=== PATIENT | male | born 1955 | race Asian ===

== ENCOUNTER 2017-09-29 14:59 | Emergency (ER) | payer SELFPAY ==
[~2017-09-29] VITALS: Ht 172.7 cm; Wt 52.2 kg
[2017-09-29 15:05] VITALS: Ht 172.7 cm; Wt 52.2 kg
[2017-09-29] MEDS ORDERED: ONDANSETRON (ODT) 4 MG TAB ODT STA (17:40)
[2017-09-29] MEDS ORDERED: HYDROmorphONE 1 MG/ML SYG IM STA (17:40)
[2017-09-29] MEDS ORDERED: METH750T93 PO (17:43)
[2017-09-29] MEDS ORDERED: IBUP800T25 PO (17:43)
[2017-09-29] MEDS ORDERED: HYDR-902 PO (17:43)
--- NOTE | 2017-09-29 17:47 | ERD ---
ER Documentation Chief Complaint Chief Complaint Left arm pain after carrying heavy backpack HPI This is 61-year-old male who is carrying a heavy backpack in his right hand. He said he tossed it into his left hand because he is getting tired of holding it with his right hand and when he caught it with his left hand and pulled his arm down and he felt sudden pain in his left posterior cervical neck and left trapezius left shoulder. He says he has pain is described as sharp worse with movement of his left shoulder neck and arm in general. There is no radiculopathy no numbness or burning there is no weakness no chest pain or shortness of breath ROS All systems reviewed and are negative except as per history of present illness. Medications Home Meds Active Scripts Hydrocodone/Acetaminophen ([place] 10-325 Tablet) 1 Each Tablet, 1 TAB PO Q6H Y for PAIN, #20 TAB Prov:ANGELIQUE SOLIS DO 09/29/17 Ibuprofen* (Motrin*) 800 Mg Tab, 800 MG PO Q6H Y for PAIN AND OR ELEVATED TEMP, #30 TAB Prov:ANGELIQUE SOLIS. DO 09/29/17 Methocarbamol* (Robaxin*) 750 Mg Tablet, 750 MG PO TID, #20 TAB Prov:ANGELIQUE SOLIS DO 09/29/17 PMhx/Soc Hx Alcohol Use: No Hx Substance Use: No Hx Tobacco Use: No FmHx Family History: No coronary disease Physical Exam Vitals Vital Signs Date Time Temp Pulse Resp B/P Pulse Ox O2 Delivery O2 Flow Rate FiO2 09/29/17 15:05 99.9 96 18 142/98 99 Physical Exam Const: Well-developed, well-nourished Head: Atraumatic, normocephalic Eyes: Normal Conjunctiva, PERRLA, EOMI, normal sclera, no nystagmus ENT: Normal External Ears, Nose and Mouth, moist mucus membranes. Neck: Full range of motion. No meningismus, no lymphadenopathy. Resp: Clear to auscultation bilaterally, no wheezing, rhonchi, rales Cardio: Regular rate and rhythm, no murmurs, S1 S2 present Abd: Soft, non tender x 4, non distended. Normal bowel sounds, no guarding or rebound, no pulsitile abdominal masses or bruits Skin: No petechiae or rashes, no ecchymosis , no maculopapular rash Back: No midline or flank tenderness Ext: No cyanosis, or edema, FROM x 4, normal inspection, neurovascularly intact x 4: There is pain is reproducible to the left posterior cervical neck as well as left trapezius and left shoulder. The patient is very histrionic and if he lightly touches skin he will wince in pain. No weakness or numbness Neur: Awake and alert, STR 5/5 x 4, sensation intact x 4, no focal findings, cerebellum intact Psych: Normal Mood and Affect Results 24 hrs Current Medications Medications (Trade) Dose Ordered Sig/Raymond Route PRN Reason Start Time Stop Time Status Last Admin Dose Admin Hydromorphone HCl (Dilaudid) 1 mg ONCE STAT IM 09/29/17 17:40 09/29/17 17:41 DC Ondansetron HCl (Zofran Odt) 4 mg ONCE STAT ODT 09/29/17 17:40 09/29/17 17:41 DC Procedures/MDM Patient's pain is clearly musculoskeletal in origin there is reproducible pain with palpation and range of motion. He wants a shot of pain medication will provide him that in a sling and discharged home Departure Diagnosis: Primary Impression: Pulled muscle Additional Impression: Muscle spasm Condition: Stable Patient Instructions: Muscle Spasm Referrals: NO PRIMARY,CARE PHYSICIAN (PCP) ANGELIQUE SOLIS DO Sep 29, 2017 17:46
[2017-09-29 18:37] VITALS: BP 141/97; PULSE 77; RESP 18; TEMP 99.9
== END 2017-09-29 18:45 | disposition home or self-care (01) ==
LOC: E/R 14:59
DX: S46.911A Strain of unspecified muscle, fascia and tendon at shoulder and upper arm level, right arm, initial encounter (principal); X50.0XXA Overexertion from strenuous movement or load, initial encounter; Y92.9 Unspecified place or not applicable
CPT/HCPCS: 96372; J1170